=== PATIENT | male | born 1935 | race Caucasian/White ===

== ENCOUNTER 2022-02-13 11:51 | Day surgery (SDC) | payer MEDICARE, OTHER ==
[2022-02-08 11:38] LABS: BASOPHILS % (AUTO) 0.4 % (0-1); EOSINOPHILS % (AUTO) 0.7 % (0-6); HEMATOCRIT 44.5 % (42.0-52.0); HEMOGLOBIN 14.6 g/dl (14.0-17.9); LYMPHOCYTES # (AUTO) 1.7 X10'3 (1.1-4.8); MEAN CORPUSCULAR HEMOGLOBIN 32.4 PG (27.0-31.0); MEAN CORPUSCULAR HGB CONC 32.8 g/dL (33.0-36.5); MEAN CORPUSCULAR VOLUME 98.9 FL (78-98); MEAN PLATELET VOLUME 9.5 FL (7.4-10.4); MONOCYTES # (AUTO) 0.6 X10'3 (0-0.9); MONOCYTES % (AUTO) 8.2 % (2-12); NEUTROPHILS # (AUTO) 4.6 X10'3 (1.8-7.7); NEUTROPHILS % (AUTO) 65.7 % (42-75); PLATELET COUNT 130 X10'3 (140-440); RED BLOOD COUNT 4.51 X10'6 (4.70-6.10); RED CELL DISTRIBUTION WIDTH 14.7 % (11.5-14.5)
[2022-02-08 11:51] LABS: APTT 29 SECONDS (22-32)
[2022-02-08 11:56] LABS: ANION GAP 10 (8-16); BLOOD UREA NITROGEN 23 MG/DL (7-18); BUN/CREATININE RATIO 22.3 (5.4-32.0); CALCIUM 9.1 MG/DL (8.5-10.1); CHLORIDE 106 MMOL/L (99-107); CREATININE 1.03 MG/DL (0.60-1.10); GLUCOSE 91 MG/DL (70-104); SODIUM 143 MMOL/L (135-145); TOTAL CARBON DIOXIDE 27.3 MMOL/L (24-32); eGFR 69 ML/MIN
[~2022-02-13] VITALS: Ht 175.3 cm; Wt 62.6 kg
[2022-02-13] VITALS (10 sets, daily range): BP systolic 114–181; BP diastolic 73–97
[2022-02-13] MEDS ORDERED: diphenhydrAMINE 25mg capsule PO PRN (12:10)
[2022-02-13] MEDS ORDERED: LORazepam 0.5 MG tablet PO PRN (12:10)
[2022-02-13] MEDS ORDERED: normal saline 1,000 ML IV SCH (12:10)
[2022-02-13] MEDS ORDERED: ATEN25TA (12:30)
[2022-02-13] MEDS ORDERED: LISI20TA28 (12:30)
[2022-02-13] MEDS ORDERED: FLO0.4C (12:30)
[2022-02-13] MEDS ORDERED: MELO-100 (12:30)
[2022-02-13] MEDS ORDERED: FAMO40TA8 (12:30)
[2022-02-13] MEDS ORDERED: ATOR40TA72 (12:30)
[2022-02-13] MEDS ORDERED: GABA600T13 (12:30)
[2022-02-13] MEDS ORDERED: BRIM5DRO16 (12:34)
[2022-02-13] MEDS ORDERED: VITAMIN D3 (12:34)
[2022-02-13] MEDS ORDERED: VITAMIN B COMPLEX (12:35)
[2022-02-13] MEDS ORDERED: TEMA15CA (12:35)
[2022-02-13] MEDS ORDERED: iohexol 350 MG/1 ML 200ml bottle ONE (12:35)
[2022-02-13] MEDS ORDERED: LIDOcaine 1% (10mg/ml)w/preservative inj. 20ml MDV ONE (12:35)
[2022-02-13] MEDS ORDERED: FLOVENT (12:35)
[2022-02-13] MEDS ORDERED: midazolam 1 mg/ML 2ml injection ONE (12:35)
[2022-02-13] MEDS ORDERED: fentaNYL/PF 50MCG/1 ML 2ML syringe ONE (12:35)
[2022-02-13] MEDS ORDERED: TYLENOL ES (12:38)
[2022-02-13] MEDS ORDERED: TIOTROPIUM (12:39)
[2022-02-13] MEDS ORDERED: HYDROcodone/acetaminophen 5mg/325mg tablet PO PRN (15:05)
[2022-02-13] MEDS ORDERED: HYDROcodone/acetaminophen 10/325mg tab PO PRN (15:05)
== END 2022-02-13 19:10 | disposition home or self-care (01) ==
LOC: SSTAY O 11:51
PROVIDERS: ATTEND Internal Medicine Interventional Cardiology
DX: R94.39 Abnormal result of other cardiovascular function study (principal); R07.89 Other chest pain; I25.810 Atherosclerosis of coronary artery bypass graft(s) without angina pectoris; E78.5 Hyperlipidemia, unspecified; I25.5 Ischemic cardiomyopathy; E87.1 Hypo-osmolality and hyponatremia; I11.9 Hypertensive heart disease without heart failure; H40.10X0 Unspecified open-angle glaucoma, stage unspecified; J43.9 Emphysema, unspecified; I70.213 Atherosclerosis of native arteries of extremities with intermittent claudication, bilateral legs; Z79.01 Long term (current) use of anticoagulants; Z79.82 Long term (current) use of aspirin; Z79.899 Other long term (current) drug therapy; Z87.891 Personal history of nicotine dependence; Z85.820 Personal history of malignant melanoma of skin; Z88.8 Allergy status to other drugs, medicaments and biological substances; Z98.890 Other specified postprocedural states; Z72.89 Other problems related to lifestyle; Z83.3 Family history of diabetes mellitus; Z82.49 Family history of ischemic heart disease and other diseases of the circulatory system
CPT/HCPCS: 36415; 76937; 80048; 85025; 85610; 85730; 93005; 93459; 99152; 99153; C1769; C1894; J1644; J2250; J3010; J3490; J7030; Q0163; Q9967; A6258